=== PATIENT | female | born 1955 | race Caucasian/White ===

== ENCOUNTER 2017-08-06 18:09 | Inpatient (IN) | payer BC, OTHER ==
--- NOTE | 2017-08-06 18:16 | DR.GENAD ---
HPI - Nurses notes reviewed Nurses Notes Review: Yes - Source History Provided: Patient - Mode of Arrival Mode of Arrival: Ambulatory - Timing Came on: Suddenly - Duration Duration: Constant Duration: Days - Severity Severity: Moderate PMH - PMH Past Medical History: Arthritis, Coronary Artery Disease, Diabetes, Hypertension Past Surgical History: Yes Surgical History: Unknown, Angioplasty/Stents, , Cholecystectomy - Family History Family Medical History: Diabetes Mellitus, Cancer, [place], Coronary Artery Disease, Hypertension - Social History Do you use any recreational Drugs:: No ROS - Review of Systems Constitutional: Weakness, Fatigue Eyes: negative: Eye Pain, Discharge ENTM: negative: Ear Pain, Nose Discharge, Nose Congestion, Throat Pain Respiratoy: Non-Productive Cough, Short of Breath, Wheezing. negative: Hemoptysis Cardiovascular: Chest Pain, Edema Gastrointestinal/Abdominal: negative: Abdominal Pain, Nausea, Vomiting Genitourinary: negative: Dysuria, Hematuria Neurological: Weakness Musculoskeletal: Muscle Pain Integumentary: Change in Color Hematologic/Lymphatic: Easy Bleeding, Easy Bruising Endocrine: No Symptoms Reported All Other Systems: Reviewed and Negative PE - Vital Signs Vitals: Temperature 98 F Pulse Rate 95 Respiratory Rate 18 Blood Pressure [Right Arm] 188/83 Blood Pressure 203/99 O2 Sat by Pulse Oximetry 97 - General Limitations: No Limitations General Appearance: Alert - Head Head Exam: Normal Inspection - Eyes Eye exam: Normal Appearance - ENT ENT Exam: Normal External Ear Exam External Ear Exam: Normal External Inspection TM/Canal Exam: Bilateral Normal Mouth Exam: Normal Inspection Throat Exam: Normal Inspection - Neck Neck Exam: Trachea Midline - Chest Chest Inspection: Symmetric Chest Wall Rise - Respiratory Respiratory Exam: Normal Lung Sounds Bilat Respiratory Exam: Bilateral Wheezing, Upper Wheezing, Upper Rhonchi, Lower Wheezing, Lower Rhonchi - Cardiovascular Cardiovascular Exam: Regular Rate, Normal Rhythm, Normal Heart Sounds - Abdominal Exam Abdominal Exam: Normal Bowel Sounds, Soft. negative: Tenderness - Extremities Extremities Exam: Edema - Back Back Exam: Paraspinal Tenderness - Neurologic Neurological Exam: Alert, Oriented X3 - Psychiatric Psychiatric Exam: Normal Affect, Normal Mood - Skin Skin Exam: Erythema MDM - Additional Information Additional Information Obtained From: Family - Differential Diagnosis Differential Diagnosis: CHEST PAIN, CHF, [place], PNEU,MICHAEL Course - Treatment Treatment: SEE ORDERS. - Education/Counseling Education/Counseling: Patient, Education Educated On: Treatment, Diagnosis, Needs for Follow Up ROR - Labs Reviewed Result Diagrams: 12/25/17 18:50 08/06/17 18:50 Laboratory: WBC 5.3 X10^3/uL (3.6-10.0) 08/06/17 18:50 RBC 3.56 X10^6/uL (3.5-5.4) 08/06/17 18:50 Hgb 11.1 g/dL (12.0-16.0) L 08/06/17 18:50 Hct 34.0 % (36.0-47.0) L 08/06/17 18:50 MCV 95.4 fL (80.0-100.0) 08/06/17 18:50 MCH 31.1 pg (27.0-34.0) 08/06/17 18:50 MCHC 32.6 g/dL (33.0-35.0) L 08/06/17 18:50 RDW 14.4 % (11.6-16.5) 08/06/17 18:50 Plt Count 152 X10^3/uL (150.0-450.0) 08/06/17 18:50 MPV 8.9 fL (7.4-11.0) 08/06/17 18:50 Neut % 79.8 % (42.0-75.0) H 08/06/17 18:50 Lymph % 10.6 % (21.0-51.0) L 08/06/17 18:50 [place] % 6.5 % (0.0-13.0) 08/06/17 18:50 Eos % 1.9 % (0.9-2.9) 08/06/17 18:50 Baso % 1.2 % (0.2-1.0) H 08/06/17 18:50 Neut # 4.3 x10^3/uL (2.2-4.8) 08/06/17 18:50 Lymph # 0.6 X10^3/uL (1.3-2.9) L 08/06/17 18:50 [place] # 0.3 x10^3/uL (0.3-0.8) 08/06/17 18:50 Eos # 0.1 x10^3/uL (0.0-0.2) 08/06/17 18:50 Baso # 0.1 X10^3/uL (0.0-0.1) 08/06/17 18:50 Absolute Nucleated RBC 0.1 /100WBC 08/06/17 18:50 Sodium 143 mmol/L (136-145) 08/06/17 18:50 Corrected Sodium 147 mmol/L (136-145) H 08/06/17 18:50 Potassium 4.4 mmol/L (3.5-5.1) 08/06/17 18:50 Chloride 103 mmol/L (98-107) 08/06/17 18:50 Carbon Dioxide 28.8 mmol/L (21-32) 08/06/17 18:50 BUN 74 mg/dL (7-18) H 08/06/17 18:50 Creatinine 3.44 mg/dL (0.55-1.02) H 08/06/17 18:50 Est GFR (MDRD) Af Amer 17 (>60) L 08/06/17 18:50 Est GFR (MDRD) Non-Af 14 (>60) L 08/06/17 18:50 Glucose 286 mg/dL (65-99) H 08/06/17 18:50 POC Glucose (mg/dL) 295 mg/dL (65-99) H 08/06/17 18:38 Calcium 8.1 mg/dL (8.5-10.1) L 08/06/17 18:50 Corrected Calcium TNP 08/06/17 18:50 Total Bilirubin 0.50 mg/dL (0.2-1.0) 08/06/17 18:50 AST 9 Units/L (15-37) L 08/06/17 18:50 ALT 15 Units/L (12-78) 08/06/17 18:50 Alkaline Phosphatase 74 Units/L (46-116) 08/06/17 18:50 Creatine Kinase 77 Units/L (26-192) 08/06/17 18:50 CK-MB (CK-2) 1.0 ng/mL (0-4.0) 08/06/17 18:50 CK/CKMB % Calc 1.3 % (<4) 08/06/17 18:50 Troponin I < 0.02 ng/mL (0-1.5) 08/06/17 18:50 B-Natriuretic Peptide 684 pg/mL (0-79) H* 08/06/17 18:50 Total Protein 7.1 g/dL (6.4-8.2) 08/06/17 18:50 Albumin 3.6 g/dL (3.4-5.0) 08/06/17 18:50 Globulin 3.5 g/dL (2.5-4.5) 08/06/17 18:50 Albumin/Globulin Ratio 1.0 Ratio (1.1-2.1) L 08/06/17 18:50 Specimen Type Catherized urine 08/06/17 19:01 Urine Color Yellow (YELLOW) 08/06/17 19:01 Urine Appearance Clear (CLEAR) 08/06/17 19:01 Urine pH 7.0 (5.0 - 8.0) 08/06/17 19:01 Ur Specific [place] 1.005 (1.000-1.030) 08/06/17 19:01 Urine Protein 3+ (NEGATIVE) 08/06/17 19:01 Urine Glucose (UA) 3+ (NEGATIVE) 08/06/17 19:01 Urine Ketones Negative (NEGATIVE) 08/06/17 19:01 Urine Occult Blood 2+ (NEGATIVE) 08/06/17 19:01 Urine Nitrite Negative (NEGATIVE) 08/06/17 19:01 Urine Bilirubin Negative (NEGATIVE) 08/06/17 19:01 Urine Urobilinogen Normal (NORMAL) 08/06/17 19:01 Ur Leukocyte Esterase Negative (NEGATIVE) 08/06/17 19:01 Urine RBC 0-5 /HPF (NEGATIVE) 08/06/17 19:01 Urine WBC 0-2 /HPF (NEGATIVE) 08/06/17 19:01 Ur Squamous Epith Cells Rare /HPF (NEGATIVE) 08/06/17 19:01 Urine Bacteria Negative /HPF (NEGATIVE) 08/06/17 19:01 Ur Culture Indicated? No/not indicated 08/06/17 19:01 - Discharge Plan Condition: Stable - Follow ups/Referrals Follow ups/Referrals: SERGE ASHLEY [Primary Care Provider] - 3 days - Instructions
[2017-08-06] MEDS ORDERED: LASIX IVP ONE ×2 (18:35→18:44)
[2017-08-06 19:07] LABS: BASOPHILS # (AUTO) 0.1 X10^3/uL (0.0-0.1); BASOPHILS % (AUTO) 1.2 % (0.2-1.0); EOSINOPHILS # (AUTO) 0.1 x10^3/uL (0.0-0.2); EOSINOPHILS % (AUTO) 1.9 % (0.9-2.9); HEMOGLOBIN 11.1 g/dL (12.0-16.0); LYMPHOCYTES # (AUTO) 0.6 X10^3/uL (1.3-2.9); LYMPHOCYTES % (AUTO) 10.6 % (21.0-51.0); MEAN CORPUSCULAR HEMOGLOBIN 31.1 pg (27.0-34.0); MEAN CORPUSCULAR HGB CONC 32.6 g/dL (33.0-35.0); MEAN CORPUSCULAR VOLUME 95.4 fL (80.0-100.0); MEAN PLATELET VOLUME 8.9 fL (7.4-11.0); MONOCYTES # (AUTO) 0.3 x10^3/uL (0.3-0.8); MONOCYTES % (AUTO) 6.5 % (0.0-13.0); NEUTROPHILS # (AUTO) 4.3 x10^3/uL (2.2-4.8); NEUTROPHILS % (AUTO) 79.8 % (42.0-75.0); PLATELET COUNT 152 X10^3/uL (150.0-450.0); RED BLOOD COUNT 3.56 X10^6/uL (3.5-5.4); RED CELL DISTRIBUTION WIDTH 14.4 % (11.6-16.5); WHITE BLOOD COUNT 5.3 X10^3/uL (3.6-10.0)
[2017-08-06 19:08] LABS: BILIRUBIN,URINE NEGATIVE (NEGATIVE); BLOOD/HEMOGLOBIN,URINE 2+ (NEGATIVE); GLUCOSE, URINE 3+ (NEGATIVE); KETONES,URINE NEGATIVE (NEGATIVE); LEUKOCYTE ESTERASE ,URINE NEGATIVE (NEGATIVE); NITRITES,URINE NEGATIVE (NEGATIVE); PROTEIN,URINE 3+ (NEGATIVE); UROBILINOGEN,URINE NORMAL (NORMAL)
[2017-08-06 19:14] LABS: APPEARANCE,URINE CLEAR (CLEAR); BACTERIA,URINE NEGATIVE /HPF (NEGATIVE); COLOR,URINE YELLOW (YELLOW); RBC,URINE 0-5 /HPF (NEGATIVE); SQUAMOUS EPITHELIAL CELL,UR RARE /HPF (NEGATIVE)
[2017-08-06 19:17] LABS: BLOOD UREA NITROGEN 74 mg/dL (7-18); CALCIUM 8.1 mg/dL (8.5-10.1); CARBON DIOXIDE 28.8 mmol/L (21-32); CHLORIDE 103 mmol/L (98-107); COR NA(FOR HYPERGLY) 147 mmol/L (136-145); CREATININE 3.44 mg/dL (0.55-1.02); SODIUM 143 mmol/L (136-145); TROPONIN I < 0.02 ng/mL (0-1.5); eGFR BLACK RACES 17 (>60); eGFR NON BLACK RACES 14 (>60)
[2017-08-06 19:21] LABS: ALANINE AMINOTRANSFERASE 15 Units/L (12-78); ALBUMIN 3.6 g/dL (3.4-5.0); ALKALINE PHOSPHATASE 74 Units/L (46-116); ASPARTATE AMINO TRANSFERASE 9 Units/L (15-37); CKMB % 1.3 % (<4); CREATINE KINASE 77 Units/L (26-192); TOTAL PROTEIN 7.1 g/dL (6.4-8.2)
[2017-08-06 19:26] LABS: B-TYPE NATRIURETIC PEPTIDE 684 pg/mL (0-79)
--- NOTE | 2017-08-06 19:49 | RAD ---
HISTORY: Shortness of breath. Study: Portable chest. Comparison: Chest x-ray dated September 28, 2014. Findings: The trachea is midline. The cardiac silhouette is enlarged with prominent perihilar vasculature, cep halization of vessels, and diffuse alveolar/interstitial markings. No obvious focal consolidation, p leural effusion, or pneumothorax.. The bony thorax is unremarkable. IMPRESSION: Constellation of findings likely representing pulmonary edema secondary to congestive hea rt failure. Underlying infiltrate not entirely excluded. Reported By:
[2017-08-06] MEDS ORDERED: ZAROXOYLN PO PRN (21:18)
[2017-08-06] MEDS ORDERED: ZOSYN VIAL 3.375 GM IV SCH (22:00)
[2017-08-06] MEDS ORDERED: NS 250 ML IV 250 ML IV ONE (22:46)
[2017-08-06] MEDS ORDERED: NS 100 ML IV 100 ML IV ONE (22:52)
[2017-08-06] MEDS ORDERED: ZOSYN VIAL 2.25 GM IV ONE (22:53)
[2017-08-06] MEDS: NEURONTIN CAP 100 MG PO SCH (23:00)
[2017-08-06] MEDS: CARDIZEM TAB 30 MG PLAIN PO SCH (23:01)
[2017-08-06] MEDS: K-DUR TAB 20 MEQ PO SCH (23:01)
[2017-08-06] MEDS: ZOSYN VIAL 2.25 GM 2.25 GM in NS 100 ML IV + SPIKE MINIBAG* 100 ML IV SCH (23:02)
[2017-08-06] MEDS: LANTUS SC SCH (23:22)
[2017-08-07] MEDS: FLEXERIL TAB 10 MG PO PRN ×2 (00:01→20:36)
[2017-08-07] MEDS: RESTORIL CAP 15 MG PO PRN ×2 (00:01→20:36)
[2017-08-07 02:54] LABS: CKMB % 1.3 % (<4); CREATINE KINASE 78 Units/L (26-192); CREATINE KINASE MB < 1.0 ng/mL (0-4.0); TROPONIN I < 0.02 ng/mL (0-1.5)
[2017-08-07] MEDS: CARDIZEM TAB 30 MG PLAIN PO SCH ×3 (05:53→21:10)
[2017-08-07] MEDS: NEURONTIN CAP 100 MG PO SCH ×3 (05:54→21:10)
[2017-08-07] MEDS ORDERED: NS 100 ML IV 0 ML IV ONE (06:04)
[2017-08-07] MEDS ORDERED: ZOSYN VIAL 2.25 GM IV ONE (06:04)
[2017-08-07] MEDS: ZOSYN VIAL 2.25 GM 2.25 GM in NS 100 ML IV + SPIKE MINIBAG* 100 ML IV SCH (06:14)
[2017-08-07 06:15] LABS: CKMB % 1.6 % (<4); CREATINE KINASE 76 Units/L (26-192); CREATINE KINASE MB 1.2 ng/mL (0-4.0); MAGNESIUM 2.5 mg/dL (1.7-2.9); TROPONIN I < 0.02 ng/mL (0-1.5)
[2017-08-07] MEDS ORDERED: ZAROXOYLN PO PRN (06:18)
[2017-08-07 06:20] LABS: ALBUMIN 3.3 g/dL (3.4-5.0); CALCIUM 8.2 mg/dL (8.5-10.1); CARBON DIOXIDE 30.1 mmol/L (21-32); CHOL/HDL RATIO 4.2 (0.0-5.0); COR CA(FOR HYPOALB) 8.8 mg/dL (8.5-10.1); CREATININE 3.25 mg/dL (0.55-1.02); TOTAL PROTEIN 6.6 g/dL (6.4-8.2)
[2017-08-07] MEDS ORDERED: TOPROL XL PO ONE (07:40)
[2017-08-07] MEDS: LASIX IVP SCH ×2 (08:30→20:35)
[2017-08-07] MEDS: ASPIRIN 81 MG CHEWTAB PO SCH (08:30)
[2017-08-07] MEDS: K-DUR TAB 20 MEQ PO SCH (08:30)
[2017-08-07] MEDS: ULTRAM PO SCH ×4 (08:31→20:37)
[2017-08-07] MEDS: TOPROL XL PO SCH (08:31)
[2017-08-07] MEDS ORDERED: PATIENT'S HOME MEDICATION (Insulin Aspart [Novolog Insulin 10 Ml Vial] 1 UNIT) SC SCH (09:00)
[2017-08-07] MEDS ORDERED: PRASUGREL HCL 10 MG PO SCH (09:00)
[2017-08-07] MEDS ORDERED: NITRODUR PATCH 0.2 MG/HR TD SCH (09:00)
[2017-08-07] MEDS ORDERED: CHECK PATCH XX SCH (09:00)
[2017-08-07] MEDS: PLAVIX PO SCH (09:15)
[2017-08-07] MEDS: HumuLIN R SUBCUT PRN ×2 (11:35→16:30)
[2017-08-07] MEDS: ZOSYN VIAL 2.25 GM 2.25 GM in NS 100 ML IV 100 ML IV SCH ×2 (14:03→21:10)
[2017-08-07] MEDS: COLACE CAP 100 MG PO PRN (20:35)
[2017-08-07] MEDS: ZOCOR TAB 40 MG PO SCH (20:36)
[2017-08-07] MEDS ORDERED: LANTUS SC SCH (21:00)
[2017-08-07] MEDS: SNACK - Diabetic Appropriate PO SCH (21:04)
[2017-08-07] MEDS: LANTUS SC SCH (21:05)
[2017-08-08] MEDS: FLEXERIL TAB 10 MG PO PRN (03:47)
[2017-08-08 04:33] VITALS: BMI 63.8
[2017-08-08 05:01] LABS: BASOPHILS # (AUTO) 0.1 X10^3/uL (0.0-0.1); BASOPHILS % (AUTO) 1.1 % (0.2-1.0); EOSINOPHILS # (AUTO) 0.2 x10^3/uL (0.0-0.2); EOSINOPHILS % (AUTO) 3.1 % (0.9-2.9); HEMATOCRIT 34.4 % (36.0-47.0); HEMOGLOBIN 11.2 g/dL (12.0-16.0); LYMPHOCYTES # (AUTO) 1.1 X10^3/uL (1.3-2.9); LYMPHOCYTES % (AUTO) 19.8 % (21.0-51.0); MEAN CORPUSCULAR HEMOGLOBIN 31.2 pg (27.0-34.0); MEAN CORPUSCULAR HGB CONC 32.5 g/dL (33.0-35.0); MEAN CORPUSCULAR VOLUME 95.9 fL (80.0-100.0); MONOCYTES # (AUTO) 0.5 x10^3/uL (0.3-0.8); MONOCYTES % (AUTO) 10.3 % (0.0-13.0); NEUTROPHILS # (AUTO) 3.5 x10^3/uL (2.2-4.8); NEUTROPHILS % (AUTO) 65.7 % (42.0-75.0); PLATELET COUNT 141 X10^3/uL (150.0-450.0); RED BLOOD COUNT 3.59 X10^6/uL (3.5-5.4); RED CELL DISTRIBUTION WIDTH 14.9 % (11.6-16.5); WHITE BLOOD COUNT 5.3 X10^3/uL (3.6-10.0)
[2017-08-08 05:27] LABS: ALANINE AMINOTRANSFERASE 15 Units/L (12-78); ALBUMIN 3.5 g/dL (3.4-5.0); ALKALINE PHOSPHATASE 69 Units/L (46-116); ASPARTATE AMINO TRANSFERASE 10 Units/L (15-37); BLOOD UREA NITROGEN 79 mg/dL (7-18); CALCIUM 8.5 mg/dL (8.5-10.1); CARBON DIOXIDE 29.3 mmol/L (21-32); CHLORIDE 106 mmol/L (98-107); COR NA(FOR HYPERGLY) 143 mmol/L (136-145); CREATININE 3.48 mg/dL (0.55-1.02); SODIUM 143 mmol/L (136-145); TOTAL PROTEIN 7.2 g/dL (6.4-8.2); eGFR BLACK RACES 17 (>60); eGFR NON BLACK RACES 14 (>60)
[2017-08-08] MEDS: NEURONTIN CAP 100 MG PO SCH ×3 (05:48→21:04)
[2017-08-08] MEDS: CARDIZEM TAB 30 MG PLAIN PO SCH ×3 (05:48→21:04)
[2017-08-08] MEDS: ZOSYN VIAL 2.25 GM 2.25 GM in NS 100 ML IV 100 ML IV SCH ×3 (05:49→21:04)
--- NOTE | 2017-08-08 07:22 | RAD ---
Examination: PA and lateral chest History: Hard time breathing Comparison reference 08/06/2017 Findings: Continued marked cardiac enlargement with central pulmonary vascular distention. There is n o evidence for pulmonary edema, pneumonia, or pleural fluid. Impression: Persistent cardiac enlargement and pulmonary venous congestion consistent with early or m ild CHF. Reported By:
[2017-08-08] MEDS ORDERED: TOPROL XL PO ONE (09:03)
[2017-08-08] MEDS: ULTRAM PO SCH ×4 (09:49→20:54)
[2017-08-08] MEDS: TOPROL XL PO SCH (09:49)
[2017-08-08] MEDS: K-DUR TAB 20 MEQ PO SCH (09:49)
[2017-08-08] MEDS: ASPIRIN 81 MG CHEWTAB PO SCH (09:49)
[2017-08-08] MEDS: LASIX IVP SCH ×2 (09:50→20:50)
[2017-08-08] MEDS: PLAVIX PO SCH (09:50)
[2017-08-08] MEDS: ZANAFLEX PO SCH ×2 (10:58→18:09)
[2017-08-08] MEDS: COLACE CAP 100 MG PO PRN (20:47)
[2017-08-08] MEDS: RESTORIL CAP 15 MG PO PRN (20:47)
[2017-08-08] MEDS: MILK OF MAGNESIA PO SCH (20:47)
[2017-08-08] MEDS: LANTUS SC SCH (20:53)
[2017-08-08] MEDS: SNACK - Diabetic Appropriate PO SCH (20:53)
[2017-08-08] MEDS: ZOCOR TAB 40 MG PO SCH (20:55)
[2017-08-09 04:38] LABS: BASOPHILS % (AUTO) 0.7 % (0.2-1.0); EOSINOPHILS # (AUTO) 0.1 x10^3/uL (0.0-0.2); EOSINOPHILS % (AUTO) 2.1 % (0.9-2.9); HEMOGLOBIN 10.6 g/dL (12.0-16.0); LYMPHOCYTES # (AUTO) 0.8 X10^3/uL (1.3-2.9); LYMPHOCYTES % (AUTO) 14.5 % (21.0-51.0); MEAN CORPUSCULAR HEMOGLOBIN 31.1 pg (27.0-34.0); MEAN CORPUSCULAR HGB CONC 32.2 g/dL (33.0-35.0); MEAN CORPUSCULAR VOLUME 96.7 fL (80.0-100.0); MEAN PLATELET VOLUME 8.8 fL (7.4-11.0); MONOCYTES # (AUTO) 0.5 x10^3/uL (0.3-0.8); NEUTROPHILS # (AUTO) 4.3 x10^3/uL (2.2-4.8); NEUTROPHILS % (AUTO) 74.7 % (42.0-75.0); PLATELET COUNT 128 X10^3/uL (150.0-450.0); RED BLOOD COUNT 3.41 X10^6/uL (3.5-5.4); RED CELL DISTRIBUTION WIDTH 14.5 % (11.6-16.5); WHITE BLOOD COUNT 5.8 X10^3/uL (3.6-10.0)
[2017-08-09 04:49] LABS: ALANINE AMINOTRANSFERASE 15 Units/L (12-78); ALBUMIN 3.5 g/dL (3.4-5.0); ALKALINE PHOSPHATASE 66 Units/L (46-116); ASPARTATE AMINO TRANSFERASE 11 Units/L (15-37); BLOOD UREA NITROGEN 88 mg/dL (7-18); CARBON DIOXIDE 30.7 mmol/L (21-32); CHLORIDE 104 mmol/L (98-107); CREATININE 4.71 mg/dL (0.55-1.02); MAGNESIUM 2.9 mg/dL (1.7-2.9); SODIUM 140 mmol/L (136-145); TOTAL PROTEIN 7.1 g/dL (6.4-8.2); eGFR BLACK RACES 12 (>60); eGFR NON BLACK RACES 10 (>60)
[2017-08-09] MEDS: ZANAFLEX PO SCH ×4 (05:21→23:01)
[2017-08-09] MEDS: CARDIZEM TAB 30 MG PLAIN PO SCH ×3 (05:21→20:59)
[2017-08-09] MEDS: NEURONTIN CAP 100 MG PO SCH ×3 (05:21→21:00)
[2017-08-09] MEDS: ZOSYN VIAL 2.25 GM 2.25 GM in NS 100 ML IV 100 ML IV SCH ×3 (05:22→21:08)
[2017-08-09] MEDS ORDERED: KAYEXALATE PO ONE (05:38)
--- NOTE | 2017-08-09 07:20 | RAD ---
HISTORY: Follow-up congestive heart failure Study: Chest AP portable Comparison: 08/08/2017 Findings: The heart is enlarged. No congestive heart failure is present on today's examination. No acute infilt rates or pleural effusions are identified. The bony thorax is unremarkable. IMPRESSION: Cardiomegaly without congestive heart failure Lungs clear Reported By:
[2017-08-09] MEDS ORDERED: TOPROL XL PO ONE (07:57)
[2017-08-09] MEDS: ASPIRIN 81 MG CHEWTAB PO SCH (08:15)
[2017-08-09] MEDS: ULTRAM PO SCH ×4 (08:15→21:08)
[2017-08-09] MEDS: MILK OF MAGNESIA PO SCH (08:15)
[2017-08-09] MEDS: PLAVIX PO SCH (08:16)
[2017-08-09] MEDS: LASIX IVP SCH ×2 (08:16→21:00)
[2017-08-09] MEDS: TOPROL XL PO SCH (08:16)
[2017-08-09] MEDS: SNACK - Diabetic Appropriate PO SCH (20:59)
[2017-08-09] MEDS: ZOCOR TAB 40 MG PO SCH (20:59)
[2017-08-09] MEDS: LANTUS SC SCH (21:51)
[2017-08-10 05:31] LABS: ALBUMIN 3.3 g/dL (3.4-5.0); CALCIUM 7.3 mg/dL (8.5-10.1); CARBON DIOXIDE 30.1 mmol/L (21-32); COR CA(FOR HYPOALB) 7.9 mg/dL (8.5-10.1); CREATININE 5.11 mg/dL (0.55-1.02); MAGNESIUM 3.2 mg/dL (1.7-2.9)
[2017-08-10 05:37] LABS: BASOPHILS % (AUTO) 0.6 % (0.2-1.0); EOSINOPHILS # (AUTO) 0.1 x10^3/uL (0.0-0.2); EOSINOPHILS % (AUTO) 1.9 % (0.9-2.9); HEMATOCRIT 31.4 % (36.0-47.0); HEMOGLOBIN 10.2 g/dL (12.0-16.0); LYMPHOCYTES # (AUTO) 0.7 X10^3/uL (1.3-2.9); LYMPHOCYTES % (AUTO) 14.6 % (21.0-51.0); MEAN CORPUSCULAR HEMOGLOBIN 31.5 pg (27.0-34.0); MEAN CORPUSCULAR HGB CONC 32.5 g/dL (33.0-35.0); MEAN CORPUSCULAR VOLUME 96.9 fL (80.0-100.0); MEAN PLATELET VOLUME 9.1 fL (7.4-11.0); MONOCYTES # (AUTO) 0.5 x10^3/uL (0.3-0.8); MONOCYTES % (AUTO) 9.4 % (0.0-13.0); NEUTROPHILS # (AUTO) 3.6 x10^3/uL (2.2-4.8); NEUTROPHILS % (AUTO) 73.5 % (42.0-75.0); PLATELET COUNT 118 X10^3/uL (150.0-450.0); RED BLOOD COUNT 3.24 X10^6/uL (3.5-5.4); RED CELL DISTRIBUTION WIDTH 14.4 % (11.6-16.5); WHITE BLOOD COUNT 4.9 X10^3/uL (3.6-10.0)
[2017-08-10] MEDS: NEURONTIN CAP 100 MG PO SCH (05:45)
[2017-08-10] MEDS: CARDIZEM TAB 30 MG PLAIN PO SCH (05:45)
[2017-08-10] MEDS: ZANAFLEX PO SCH (05:45)
[2017-08-10] MEDS: ZOSYN VIAL 2.25 GM 2.25 GM in NS 100 ML IV 100 ML IV SCH (05:46)
[2017-08-10] MEDS ORDERED: TOPROL XL PO ONE (07:59)
[2017-08-10] MEDS: ASPIRIN 81 MG CHEWTAB PO SCH (09:20)
[2017-08-10] MEDS: TOPROL XL PO SCH (09:21)
[2017-08-10] MEDS: ULTRAM PO SCH (09:21)
[2017-08-10] MEDS: LASIX IVP SCH (09:22)
[2017-08-10] MEDS: PLAVIX PO SCH (09:22)
[2017-08-10] MEDS: MILK OF MAGNESIA PO SCH (09:22)
[2017-08-10 10:09] LABS: ABG BASE EXCESS 2.2 mmol/L (-2.0-2.0)
[2017-08-10 10:10] LABS: ABG HCO3 30.8 mmol/L (22-26)
[2017-08-10 10:11] LABS: ABG ALLEN TEST POS
--- NOTE | 2017-08-10 11:58 | CT ---
HISTORY: Shortness of breath. Study: CT chest without contrast Comparison: Chest x-ray dated August 09, 2017. Technique: Multiple axial images of the chest were obtained from the thoracic inlet to the upper abdo men without the administration of IV contrast. Dose reduction techniques including Automated Exposure Control (AEC) and adjustment of mA and kV were utilized. Findings: The mediastinum does not demonstrate significant pathological lymphadenopathy. There is no paracardi al effusion observed. The thoracic aorta is normal in its contour without evidence for aneurysmal di latation. Moderate cardiomegaly. Severe coronary artery vascular calcifications. Dependent atelectasis versus scarring. No obvious pulmonary nodule, mass, focal consolidation, pleura l effusion, or pneumothorax. The upper abdominal structures unremarkable. Degenerative changes of the spine. No aggressive osseous lesions. IMPRESSION: 1. No CT evidence of acute thoracic pathology. 2. Other chronic findings as above. Reported By:
[2017-08-10 13:51] VITALS: BP 163/89
== END 2017-08-10 12:55 | disposition short-term general hospital (02) | DRG 204 ==
LOC: ER 18:21 → MED/SURG 21:09
PROVIDERS: ADMIT Internal Medicine; ATTEND Internal Medicine
DX: R06.03 Acute respiratory distress (principal); R07.89 Other chest pain; L03.311 Cellulitis of abdominal wall; R06.02 Shortness of breath; I25.10 Atherosclerotic heart disease of native coronary artery without angina pectoris; E87.5 Hyperkalemia; Z79.1 Long term (current) use of non-steroidal anti-inflammatories (NSAID); R60.0 Localized edema; I50.9 Heart failure, unspecified
CPT/HCPCS: 36415; 36600; 51702; 71010; 71020; 71250; 80053; 80061; 81001; 82550; 82553; 82803; 83735; 83880; 84484; 85025; 85610; 85730; 93005; 93010; 94760; 96365; 96374; 99282; 99284; A4216; A4222; J1815; J1940; J2543